=== PATIENT | male | born 1985 | race Caucasian/White ===

== ENCOUNTER 2016-11-19 15:00 | Emergency (ER) | payer SELFPAY ==
[~2016-11-19] VITALS: Ht 175.3 cm; Wt 63.5 kg
[~2016-11-19 15:00] MED LIST: ACHD5005 PO; AZIT-21 PO; CLIN-62 PO; CLIN300C3 PO; HYDR-3454 PO; HYDR-3583 PO; HYDR1TAB PO; LEVE500T PO; LEVE500T6 PO; Multivitamins/Minerals Therap PO; NAPR-243 PO; SULF1TAB38 PO; TBDX2.5OP OS; TRAM50TA2 PO; TRM50T PO
[2016-11-19] MEDS ORDERED: LACTATED RINGERS 1,000 ML IV ONE (16:00)
[2016-11-19 16:39] LABS: BASOPHILS % (AUTO) 1 % (0-10); EOSINOPHILS % (AUTO) 1 % (0-10); LYMPHOCYTES # (AUTO) 1.6 X 10^3 (1.0-4.0); LYMPHOCYTES % (AUTO) 49 % (12-44); MEAN CORPUSCULAR HEMOGLOBIN 32 PG (25-34); MEAN CORPUSCULAR HGB CONC 36 G/DL (32-36); MEAN CORPUSCULAR VOLUME 90 FL (80-99); MEAN PLATELET VOLUME 9.9 FL (7.4-10.4); MONOCYTES # (AUTO) 0.5 X 10^3 (0.0-1.0); MONOCYTES % (AUTO) 16 % (0-12); NEUTROPHILS # (AUTO) 1.1 X 10^3 (1.8-7.8); NEUTROPHILS % (AUTO) 35 % (42-75); PLATELET COUNT 69 10^3/uL (130-400); RED BLOOD COUNT 4.92 10^6/uL (4.35-5.85); RED CELL DISTRIBUTION WIDTH 14.9 % (10.0-14.5); WHITE BLOOD COUNT 3.2 10^3/uL (4.3-11.0)
[2016-11-19 16:59] LABS: ALANINE AMINOTRANSFERASE 158 U/L (0-55); ALBUMIN 4.1 G/DL (3.2-4.5); ANION GAP 13 MMOL/L (5-14); ASPARTATE AMINO TRANSFERASE 236 U/L (5-34); BILIRUBIN,TOTAL 0.4 MG/DL (0.1-1.0); BLOOD UREA NITROGEN 7 MG/DL (7-18); BUN/CREATININE RATIO 9; CALCIUM 8.6 MG/DL (8.5-10.1); CARBON DIOXIDE 25 MMOL/L (21-32); CHLORIDE 105 MMOL/L (98-107); CREATININE SERUM 0.77 MG/DL (0.60-1.30); GFR ESTIMATED > 60; GLUCOSE 71 MG/DL (70-105); LIPASE 69 U/L (8-78); POTASSIUM 3.4 MMOL/L (3.6-5.0); SODIUM 143 MMOL/L (135-145); TOTAL PROTEIN 6.4 G/DL (6.4-8.2)
[2016-11-19 17:03] LABS: ALCOHOL 390 MG/DL (<10)
--- NOTE | 2016-11-19 17:04 | Diagnostic Imaging Report ---
Indication: Chest pain. Comparison with 06/22/2014. Findings: The lungs well-aerated and clear. The heart appears normal. No hilar adenopathy. No pneumothorax or pleural effusions. No bony abnormalities. IMPRESSION: Normal PA and lateral chest. Dictated by: Dictated on workstation # [id number]
[2016-11-19 17:32] LABS: BILIRUBIN,URINE NEGATIVE (NEGATIVE); KETONES,URINE NEGATIVE (NEGATIVE); LEUKOCYTE ESTERASE ,URINE NEGATIVE (NEGATIVE); NITRITE,URINE NEGATIVE (NEGATIVE); PH,URINE 8 (5-9); PROTEIN,URINE 1+ (NEGATIVE); UROBILINOGEN,URINE 1 MG/DL (NORMAL)
[2016-11-19 17:41] LABS: WBC,URINE RARE /HPF
[2016-11-19] MEDS ORDERED: LEVE500T99 PO (18:11)
[2016-11-19] MEDS ORDERED: AZIT250T5 PO (18:11)
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
[2016-11-19] MEDS ORDERED: AZITHROMYCIN 250 MG TAB (ZITHROMAX) PO ONE (18:15)
[2016-11-19] MEDS ORDERED: LEVETIRACETAM 500 MG (KEPPRA) TAB PO ONE (18:15)
[2016-11-19 18:30] VITALS: BP 122/76
== END 2016-11-19 18:30 | disposition home or self-care (01) ==
LOC: EDUNIT# 15:00 → ER 15:06
DX: F10.229 Alcohol dependence with intoxication, unspecified (principal); J06.9 Acute upper respiratory infection, unspecified; J01.90 Acute sinusitis, unspecified; G40.909 Epilepsy, unspecified, not intractable, without status epilepticus; Z79.899 Other long term (current) drug therapy; Y90.8 Blood alcohol level of 240 mg/100 ml or more
CPT/HCPCS: 36415; 71020; 80053; 80306; 80320; 81000; 83690; 83735; 85025; 87804; 96360

== ENCOUNTER 2017-10-07 12:25 | Inpatient (IN) | payer SELFPAY ==
[~2017-10-07] VITALS: Ht 177.8 cm; Wt 72.6 kg
[2017-10-07] VITALS (10 sets, daily range): BP systolic 113–142; BP diastolic 73–101
[~2017-10-07 12:25] MED LIST changes: +AZIT250T12 PO; +LEVE500T99 PO
--- OUTSIDE RECORDS SUMMARY | 2017-10-07 14:22 | XMS REPORT ---
Author Author MEHREEN VALENCIA [facility] eClinicalWorks Address Unknown Phone Unavailable Care Team Providers Care Health Clinician Name Role Phone MEHREEN VALENCIA CP Unavailable Allergies No Known Allergies Problems Problem Type Condition ICD-9 Code Onset Dates Condition Status Problem Unspecified alopecia 704.00 Active Problem Other and unspecified noninfectious gastroenteritis and colitis 558.9 Active Problem Other convulsions 780.39 Active Problem Nondependent alcohol abuse, unspecified drunkenness 305.00 Active Problem Other specified disease of hair and hair follicles 704.8 Active Problem Personal history of methicillin resistant Staphylococcus aureus V12.04 Active Medications Medication Code System Code Instructions Start Date End Date Status Dosage Levetiracetam [facility] [address]-91 500 MG TAKE ONE TABLET BY MOUTH TWICE DAILY Results No Known Results Summary Purpose eClinicalWorks Submission
--- OUTSIDE RECORDS SUMMARY | 2017-10-07 14:22 | XMS REPORT ---
Author Author MEHREEN VALENCIA [facility] eClinicalWorks Address Unknown Phone Unavailable Care Team Providers Care Engineer Design And Construction Name Role Phone MEHREEN VALENCIA CP Unavailable [...] methicillin resistant Staphylococcus aureus V12.04 Active Medications No Known Medications Results No Known Results Summary Purpose eClinicalWorks Submission
--- OUTSIDE RECORDS SUMMARY | 2017-10-07 14:22 | XMS REPORT ---
Author Author MEHREEN VALENCIA Organization eClinical[employer] Address Unknown Phone Unavailable Care Team Providers Care Manager Quality Improvement Name Role Phone MEHREEN VALENCIA CP Unavailable Allergies No Known Allergies Problems Problem Type Condition Code Onset Dates Condition Status Problem Unspecified [...] Start Date End Date Status Dosage Levetiracetam [facility] [place] [address]-49 500 MG Orally 2 times a day 1 tablet Results No Known Results Summary Purpose eClinicalWorks Submission
--- OUTSIDE RECORDS SUMMARY | 2017-10-07 14:22 | XMS REPORT ---
Author Author MEHREEN VALENCIA [facility] eClinicalWorks Address Unknown Phone Unavailable Care Team Providers Care Hazardous Materials Analyst Name Role Phone MEHREEN VALENCIA CP Unavailable [...] Start Date End Date Status Dosage Levetiracetam [facility] [address]-31 500 MG TAKE ONE TABLET BY MOUTH TWICE DAILY Results No Known Results Summary Purpose eClinicalWorks Submission
--- OUTSIDE RECORDS SUMMARY | 2017-10-07 14:22 | XMS REPORT ---
Author Author MEHREEN VALENCIA [facility] Address [address] [place] [address] Care Team Providers Care Sawing And Assembly Supervisor Name Role Phone MEHREEN VALENCIA Unavailable PROBLEMS Type Condition ICD9-CM Code EPC82-YO Code Onset Dates Condition Status SNOMED Code Problem Other convulsions 780.39 Active 12467785 Problem Unspecified alopecia 704.00 Active 87863838 Problem Personal history of methicillin resistant Staphylococcus aureus V12.04 Active 339618839 Problem Nondependent alcohol abuse, unspecified drunkenness 305.00 Active 57252214 Problem Other and unspecified noninfectious gastroenteritis and colitis 558.9 Active 62285588 Problem Other specified disease of hair and hair follicles 704.8 Active 505794589 ALLERGIES Unknown Allergies SOCIAL HISTORY No smoking Hx information available PLAN OF CARE VITAL SIGNS MEDICATIONS Unknown Medications RESULTS No Results PROCEDURES No Known procedures IMMUNIZATIONS No Known Immunizations
--- OUTSIDE RECORDS SUMMARY | 2017-10-07 14:22 | XMS REPORT ---
Author Author KAYLENE HOLT [facility] eClinicalWorks Address Unknown Phone Unavailable Care Team Providers Care Electrical Control Assembler Name Role Phone KAYLENE HOLT CP Unavailable Allergies No Known Allergies Problems Problem Type Condition ICD-9 Code Onset Dates Condition Status Problem Unspecified alopecia 704.00 Active Problem Other and unspecified noninfectious gastroenteritis and colitis 558.9 Active Problem Other convulsions 780.39 Active Problem Nondependent alcohol abuse, unspecified drunkenness 305.00 Active Assessment Other convulsions 780.39 Active Problem Other specified disease of hair and hair follicles 704.8 Active Problem Personal history of methicillin resistant Staphylococcus aureus V12.04 Active Medications Medication Code System Code Instructions Start Date End Date Status Dosage Levetiracetam [facility] [place] [address]-55 500 MG Orally 2 times a day TAKE ONE TAB Procedures Procedure Coding System Code Date Office Visit, Est Pt., Level 4 CPT-4 85717 Jul 06, 2015 Vital Signs Date/Time: Jul 06, 2015 Temperature 98.7 F Weight 160.4 lbs Height 71 in BMI 22.37 Index Blood Pressure Diastolic 80 mmHg Blood Pressure Systolic 120 mmHg Cardiac Monitoring Heart Rate 84 bpm Results No Known Results Summary Purpose eClinicalWorks Submission
--- OUTSIDE RECORDS SUMMARY | 2017-10-07 14:22 | XMS REPORT | Continuity Of Care Document ---
Author Author [facility] Organization [facility] Address [address] [place] [address] Phone Care Team Providers Care Assembler For Puller Over Hand Name Role Phone TATE SCHMITT MD AT UNASSIGNED, ED PHYSICIAN Unavailable Unavailable NON STAFF COURTESY, PROVIDER PP Unavailable Results Results No results recorded. Allergies and Adverse Reactions Allergies and Adverse Reactions Patient Unit Number: [id number] Agent Type Reaction Severity Status PENICILLINS Drug Allergy Unknown Unknown Active Problem List Problem List Visit/Account #[id number] (October 14, 2016 11:46pm - October 15, 2016 12: 22am) Acute Problems: Code/Condition Comments Documented Start Date Documented Resolved Date Code (s) Alcohol intoxication ICD10: F10.129 Alcoholic intoxication ICD9: 305.00 Alcoholic intoxication SNOMED: 07644719 Alcoholic intoxication Alcohol abuse ICD10: F10.10 Alcohol abuse ICD9: 305.00 Alcohol abuse SNOMED: 07103013 Alcohol abuse Plan of Care Plan Of Care Visit/Account #[id number] (October 14, 2016 11:46pm - October 15, 2016 12: 22am) Patient Instructions You will be going to [facility] to detox Return for seizures or any concern Pt at risk for alcohol withdrawal please use Ativan protocol Vital Signs Vital Signs Visit/Account #[id number] (October 14, 2016 11:46pm - October 15, 2016 12: 22am) Sign First Result Last Result Code(s) Temperature in Fahrenheit Temperature (Fahrenheit): 98.2 [degF] On October 14, 2016 11:43pm Temperature (Fahrenheit): 97.7 [degF] On October 15, 2016 12:22am 8310-5 Body Temperature Weight in Kilograms Weight (Kilograms): 68.18 kg On October 14, 2016 11:43pm 3141-9 Weight Measured 54939-6 Body weight measured in kilograms Functional Status Functional and Cognitive Status No Functional Status Data Medications Inpatient/Ordered Medications - Medications administered during hospital visit Visit/Account #[id number] (October 14, 2016 11:46pm - October 15, 2016 12: 22am) Medication Route Sig/Schedule Precondition/Indication Comments/Instructions Codes ZOFRAN ODT(ONDANSETRON HCL) 4 MG TAB Dose: 4 MG ORAL NOW Label Comments: MAY INCREASE FALL RISK Ondansetron 4 MG Disintegrating Oral Tablet (RxNorm): 334467 ZOFRAN ODT (ONDANSETRON HCL) [facility] [id number] History Of Encounters Encounters Visit/Account #[id number] (October 14, 2016 11:46pm - October 15, 2016 12: 22am) Account Status Physican Of Record Reason For Visit Visit Diagnosis Start Date/Time Stop Date/Time ER TATE SCHMITT MD WITHDRAW FROM ALCOHOL Not Available Oct 14, 2016 11:46pm Oct 15, 2016 12:22am History of Procedures Procedure List No procedures recorded. Discharge Instructions Discharge Instructions Visit/Account #[id number] (October 14, 2016 11:46pm - October 15, 2016 12: 22am) DISCHARGE INSTRUCTIONS Physician Documentation Social History Social History No Social History Data. Immunizations Immunizations Patient Unit Number: [id number] Immunizations No immunizations recorded.
[2017-10-07] MEDS ORDERED: ONDANSETRON 4 MG (ZOFRAN) ORAL DISSOLVE TAB SL PRN (14:30)
[2017-10-07] MEDS ORDERED: ONDANSETRON 4 MG/2 ML (SDV) Z0FRAN IV PRN (14:30)
[2017-10-07] MEDS ORDERED: ENOXAPARIN 40 MG/0.4 ML (LOVENOX) SYR SC SCH (14:30)
[2017-10-07] MEDS ORDERED: LORazepam INJ 2 MG/ML (ATIVAN) VIAL IM/IV PRN (14:30)
[2017-10-07] MEDS ORDERED: D5 1/2 NS 1000 ML IV SOLUTION 1,000 ML IV PRN (14:30)
[2017-10-07] MEDS ORDERED: 1/2 NS IV SOLUTION 1,000 ML IV PRN (14:30)
[2017-10-07] MEDS ORDERED: ANTACID SUSP 30 ML UDC (MYLANTA) PO PRN (14:30)
[2017-10-07] MEDS ORDERED: SENNA W/DOCUSATE (SENOKOT S) TABLET PO PRN (14:30)
[2017-10-07] MEDS ORDERED: CATHETER FLUSH 10 ML SYR IV PRN (14:45)
[2017-10-07] MEDS: D5 1/2 NS W/KCL 20 MEQ/L 1,000 ML IV SCH ×2 (15:12→21:19)
[2017-10-07] MEDS ORDERED: LORazepam INJ 2 MG/ML (ATIVAN) VIAL IVP NR (16:00)
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
[2017-10-07] MEDS ORDERED: INFLUENZA TRIvalent 2017-2018 0.5 ML/45 MCG SYR IM ONE (16:45)
[2017-10-07] MEDS: PANTOPRAZOLE 40 MG (PROTONIX) TAB PO SCH (16:49)
[2017-10-07] MEDS: LORazepam INJ 2 MG/ML (ATIVAN) VIAL IV PRN ×3 (16:49→21:57)
[2017-10-07] MEDS: MAGNESIUM OXIDE (MAG-OX)400 MG TAB PO SCH (20:21)
[2017-10-07] MEDS: LEVETIRACETAM 500 MG (KEPPRA) TAB PO SCH (20:21)
[2017-10-08] VITALS (23 sets, daily range): BP systolic 122–155; BP diastolic 46–100
[2017-10-08] MEDS: LORazepam INJ 2 MG/ML (ATIVAN) VIAL IV PRN ×8 (00:40→18:50)
[2017-10-08] MEDS: D5 1/2 NS W/KCL 20 MEQ/L 1,000 ML IV SCH ×4 (04:11→19:53)
[2017-10-08 05:15] LABS: BASOPHILS % (AUTO) 0 % (0-10); EOSINOPHILS % (AUTO) 1 % (0-10); LYMPHOCYTES # (AUTO) 0.9 X 10^3 (1.0-4.0); LYMPHOCYTES % (AUTO) 25 % (12-44); MEAN CORPUSCULAR HEMOGLOBIN 34 PG (25-34); MEAN CORPUSCULAR HGB CONC 35 G/DL (32-36); MEAN CORPUSCULAR VOLUME 98 FL (80-99); MEAN PLATELET VOLUME 10.9 FL (7.4-10.4); MONOCYTES # (AUTO) 0.5 X 10^3 (0.0-1.0); MONOCYTES % (AUTO) 14 % (0-12); NEUTROPHILS # (AUTO) 2.2 X 10^3 (1.8-7.8); NEUTROPHILS % (AUTO) 61 % (42-75); PLATELET COUNT 41 10^3/uL (130-400); RED BLOOD COUNT 4.18 10^6/uL (4.35-5.85); RED CELL DISTRIBUTION WIDTH 12.6 % (10.0-14.5); WHITE BLOOD COUNT 3.7 10^3/uL (4.3-11.0)
[2017-10-08 05:39] LABS: ANION GAP 13 MMOL/L (5-14); BLOOD UREA NITROGEN 6 MG/DL (7-18); BUN/CREATININE RATIO 8; CARBON DIOXIDE 22 MMOL/L (21-32); CHLORIDE 101 MMOL/L (98-107); CREATININE SERUM 0.76 MG/DL (0.60-1.30); GFR ESTIMATED > 60; GLUCOSE 101 MG/DL (70-105); MAGNESIUM 1.8 MG/DL (1.8-2.4); PHOSPHORUS 2.4 MG/DL (2.3-4.7); POTASSIUM 3.9 MMOL/L (3.6-5.0); SODIUM 136 MMOL/L (135-145)
[2017-10-08] MEDS: POTASSIUM CL 10MEQ/50ML IVPB 50 ML IV SCH (05:59)
[2017-10-08] MEDS: KCL 20 MEQ TAB (K-DUR) PO SCH (06:00)
[2017-10-08] MEDS: MULTIVIT W/MINERALS TAB (THERAGRAN M) PO SCH (06:25)
[2017-10-08] MEDS: PANTOPRAZOLE 40 MG (PROTONIX) TAB PO SCH (06:25)
[2017-10-08] MEDS: THIAMINE 100 MG (VITAMIN B-1) TAB PO SCH (06:26)
[2017-10-08] MEDS: MAGNESIUM 1 GM/100 ML IVPB 100 ML IV SCH (06:40)
[2017-10-08] MEDS: MAGNESIUM OXIDE (MAG-OX)400 MG TAB PO SCH ×2 (08:19→20:50)
[2017-10-08] MEDS: FOLIC ACID 1 MG TAB PO SCH (08:19)
[2017-10-08] MEDS: LEVETIRACETAM 500 MG (KEPPRA) TAB PO SCH (08:19)
[2017-10-08] MEDS ORDERED: LEVE500T6 PO (09:45)
--- NOTE | 2017-10-08 11:16 | Progress Note (SOAP) ---
Subjective Subjective/Events-last exam Afebrile. Had altered mental status overnight, urinated in trash can and on floor. This morning he denies complaints except tremor. Review of Systems Date Seen by Provider: Oct 08, 2017 Time Seen by Provider: 10:20 Objective Exam Last Set of Vital Signs Vital Signs Date Time Temp Pulse Resp B/P (MAP) Pulse Ox O2 Delivery O2 Flow Rate FiO2 10/08/17 09:00 78 17 134/93 (107) 97 Room Air 10/08/17 08:21 98.9 10/08/17 03:39 2.00 Capillary Refill : I&O Intake and Output 10/08/17 00:00 Intake Total 1720 ml Output Total 750 ml Balance 970 ml Intake Oral 720 ml IV Total 1000 ml Output Urine Total 750 ml Daily Weight Change No General: Alert, Oriented X3, Mild Distress Lungs: Clear to Auscultation, Normal Air Movement Heart: Regular Rate, No Murmurs Neuro: Other (tremor) Psych/Mental Status: Mental Status NL Results/Procedures Lab Laboratory Tests 10/08/17 04:50: White Blood Count 3.7L, Red Blood Count 4.18L, Hemoglobin 14.3, Hematocrit 41, Mean Corpuscular Volume 98, Mean Corpuscular Hemoglobin 34, Mean Corpuscular Hemoglobin Concent 35, Red Cell Distribution Width 12.6, Platelet Count 41L, Mean Platelet Volume 10.9H, Neutrophils (%) (Auto) 61, Lymphocytes (%) (Auto) 25 , Monocytes (%) (Auto) 14H, Eosinophils (%) (Auto) 1, Basophils (%) (Auto) 0, Neutrophils # (Auto) 2.2, Lymphocytes # (Auto) 0.9L, Monocytes # (Auto) 0.5, Eosinophils # (Auto) 0.0, Basophils # (Auto) 0.0, Sodium Level 136, Potassium Level 3.9, Chloride Level 101, Carbon Dioxide Level 22, Anion Gap 13, Blood Urea Nitrogen 6L, Creatinine 0.76, Estimat Glomerular Filtration Rate > 60, BUN/ Creatinine Ratio 8, Glucose Level 101, Calcium Level 9.0, Phosphorus Level 2.4, Magnesium Level 1.8 10/08/17 08:59: Assessment/Plan Assessment/Plan (1) Alcohol withdrawal Status: Acute Assessment & Plan: Alcohol withdrawal protocol- IVF, MVI, thiamine, folate, magnesium and ativan per CIWA scoring 10/08 required 6 mg ativan overnight, CIWA scores 7-12, will transfer to floor and continue protocol (2) Seizure disorder Status: Chronic Assessment & Plan: Resume home Keppra (3) Hypokalemia Status: Resolved Assessment & Plan: Received 20 mEq orally at OSH, recheck in the am (4) Elevated LFTs Status: Acute Assessment & Plan: Likely due to alcohol, check hepatitis panel (5) Hypomagnesemia Status: Acute (6) Thrombocytopenia Status: Acute Assessment & Plan: Suspect due to liver disease, INR/PT and PTT low at OSH. Recheck in am. 10/08 stable but low, continue to monitor (7) At risk for deep venous thrombosis Status: Acute Assessment & Plan: No enoxaparin due to low platelets, SCDs, ambulation (8) At risk for stress ulcer Status: Acute Assessment & Plan: No H2 james due to thrombocytopenia, will use PPI Clinical Quality Measures DVT/VTE Risk/Contraindication: Risk Factor Score Per Nursin RFS Level Per Nursing on Admit: 1=Low/No VTE PPX CHARU ADAMES MD Oct 08, 2017 11:16 am
[2017-10-08] MEDS ORDERED: LORazepam INJ 2 MG/ML (ATIVAN) VIAL IV NR (13:01)
[2017-10-08] MEDS ORDERED: LORazepam INJ 2 MG/ML (ATIVAN) VIAL IVP NR (14:30)
[2017-10-08] MEDS: NICOTINE 21 MG (NICODERM) PATCH TD SCH (16:47)
[2017-10-08] MEDS: LORazepam INJ 2 MG/ML (ATIVAN) VIAL IVP NR ×2 (17:12→19:20)
[2017-10-08] MEDS ORDERED: NS (IVPB) 50 ML ONE (17:52)
[2017-10-08] MEDS: DEXMEDETOMIDINE INJECTION 400 MCG in NS (IVPB) 100 ML IV SCH ×2 (17:57→20:52)
[2017-10-08] MEDS ORDERED: HALOPERIDOL 5 MG/ML (HALDOL) AMP IV NR (19:00)
[2017-10-08] MEDS ORDERED: LORazepam INJ 2 MG/ML (ATIVAN) VIAL IV PRN (19:45)
[2017-10-08] MEDS ORDERED: HALOPERIDOL 5 MG/ML (HALDOL) AMP IV PRN (19:45)
[2017-10-08] MEDS: LEVETIRACETAM INJECTION 500 MG in NS (IVPB) 50 ML IV SCH (20:50)
[2017-10-09] VITALS (24 sets, daily range): BP systolic 118–146; BP diastolic 88–109
[2017-10-09] MEDS: DEXMEDETOMIDINE INJECTION 400 MCG in NS (IVPB) 100 ML IV SCH ×2 (05:14→16:44)
[2017-10-09 05:18] LABS: BASOPHILS % (AUTO) 0 % (0-10); EOSINOPHILS % (AUTO) 1 % (0-10); LYMPHOCYTES # (AUTO) 0.7 X 10^3 (1.0-4.0); LYMPHOCYTES % (AUTO) 17 % (12-44); MEAN CORPUSCULAR HEMOGLOBIN 35 PG (25-34); MEAN CORPUSCULAR HGB CONC 36 G/DL (32-36); MEAN CORPUSCULAR VOLUME 98 FL (80-99); MONOCYTES # (AUTO) 0.5 X 10^3 (0.0-1.0); MONOCYTES % (AUTO) 12 % (0-12); NEUTROPHILS # (AUTO) 3.1 X 10^3 (1.8-7.8); NEUTROPHILS % (AUTO) 71 % (42-75); PLATELET COUNT 45 10^3/uL (130-400); RED BLOOD COUNT 4.48 10^6/uL (4.35-5.85); RED CELL DISTRIBUTION WIDTH 12.5 % (10.0-14.5); WHITE BLOOD COUNT 4.4 10^3/uL (4.3-11.0)
[2017-10-09] MEDS: MULTIVIT W/MINERALS TAB (THERAGRAN M) PO SCH (05:40)
[2017-10-09] MEDS: THIAMINE 100 MG (VITAMIN B-1) TAB PO SCH (05:40)
[2017-10-09] MEDS: PANTOPRAZOLE 40 MG (PROTONIX) TAB PO SCH (05:40)
[2017-10-09 05:48] LABS: ANION GAP 11 MMOL/L (5-14); BLOOD UREA NITROGEN 5 MG/DL (7-18); BUN/CREATININE RATIO 7; CALCIUM 9.8 MG/DL (8.5-10.1); CARBON DIOXIDE 22 MMOL/L (21-32); CHLORIDE 107 MMOL/L (98-107); CREATININE SERUM 0.68 MG/DL (0.60-1.30); GFR ESTIMATED > 60; GLUCOSE 101 MG/DL (70-105); MAGNESIUM 2.1 MG/DL (1.8-2.4); PHOSPHORUS 3.3 MG/DL (2.3-4.7); POTASSIUM 4.2 MMOL/L (3.6-5.0); SODIUM 140 MMOL/L (135-145)
[2017-10-09] MEDS: POTASSIUM CL 10MEQ/50ML IVPB 50 ML IV SCH (06:03)
[2017-10-09] MEDS: MAGNESIUM 1 GM/100 ML IVPB 100 ML IV SCH (06:03)
[2017-10-09] MEDS: KCL 20 MEQ TAB (K-DUR) PO SCH (06:03)
[2017-10-09] MEDS: D5 1/2 NS W/KCL 20 MEQ/L 1,000 ML IV SCH ×3 (06:13→19:18)
[2017-10-09] MEDS: LORazepam INJ 2 MG/ML (ATIVAN) VIAL IV PRN ×5 (06:53→23:32)
[2017-10-09 08:27] LABS: HIV AG AB SCREEN Non-Reactive (Non-Reactive)
[2017-10-09] MEDS: NICOTINE PATCH REMOVAL TP SCH (09:03)
[2017-10-09] MEDS: NICOTINE 21 MG (NICODERM) PATCH TD SCH (09:03)
[2017-10-09] MEDS: LEVETIRACETAM INJECTION 500 MG in NS (IVPB) 50 ML IV SCH ×2 (09:04→20:54)
[2017-10-09 09:09] LABS: ALBUMIN 3.9 GM/DL (3.2-4.5); BILIRUBIN,DIRECT 0.3 MG/DL (0.0-0.3); BILIRUBIN,INDIRECT 0.3 MG/DL; BILIRUBIN,TOTAL 0.6 MG/DL (0.1-1.0); TOTAL PROTEIN 7.2 GM/DL (6.4-8.2)
[2017-10-09] MEDS: MAGNESIUM OXIDE (MAG-OX)400 MG TAB PO SCH ×2 (10:09→20:47)
[2017-10-09] MEDS: FOLIC ACID 1 MG TAB PO SCH (10:09)
--- NOTE | 2017-10-09 10:40 | Progress Note (SOAP) ---
Subjective Subjective/Events-last exam Significant worsening of agitation and hallucinations last night requiring rapidly escalating doses of lorazepam and ultimately Precedex drip and haldol to calm. This morning is sedated on Precdex drip, but opens eyes to name and stimulation. Review of Systems Date Seen by Provider: Oct 09, 2017 Time Seen by Provider: 09:45 Objective Exam Last Set of Vital Signs Vital Signs Date Time Temp Pulse Resp B/P (MAP) Pulse Ox O2 Delivery O2 Flow Rate FiO2 10/09/17 10:00 57 13 138/101 (113) 94 Nasal Cannula 3.50 10/09/17 08:00 98.1 Capillary Refill : I&O Intake and Output 10/09/17 00:00 Intake Total 4559 ml Output Total 3125 ml Balance 1434 ml Intake Oral 1400 ml IV Total 3159 ml Output Urine Total 3125 ml # Voids 6 General: Other (sleeping soundly, opens eyes briefly to name) Lungs: Clear to Auscultation, Normal Air Movement Heart: No Murmurs, Other (bradycardic) Abdomen: Normal Bowel Sounds, Soft Extremities: No Edema Results/Procedures Lab Laboratory Tests 10/09/17 05:05: White Blood Count 4.4, Red Blood Count 4.48, Hemoglobin 15.5, Hematocrit 44, Mean Corpuscular Volume 98, Mean Corpuscular Hemoglobin 35H, Mean Corpuscular Hemoglobin Concent 36, Red Cell Distribution Width 12.5, Platelet Count 45L, Mean Platelet Volume 11.0H, Neutrophils (%) (Auto) 71, Lymphocytes (%) (Auto) 17 , Monocytes (%) (Auto) 12, Eosinophils (%) (Auto) 1, Basophils (%) (Auto) 0, Neutrophils # (Auto) 3.1, Lymphocytes # (Auto) 0.7L, Monocytes # (Auto) 0.5, Eosinophils # (Auto) 0.0, Basophils # (Auto) 0.0, Sodium Level 140, Potassium Level 4.2, Chloride Level 107, Carbon Dioxide Level 22, Anion Gap 11, Blood Urea Nitrogen 5L, Creatinine 0.68, Estimat Glomerular Filtration Rate > 60, BUN/ Creatinine Ratio 7, Glucose Level 101, Calcium Level 9.8, Phosphorus Level 3.3, Magnesium Level 2.1, Total Bilirubin 0.6, Direct Bilirubin 0.3, Indirect Bilirubin 0.3, Aspartate Amino Transf (AST/SGOT) 97H, Alanine Aminotransferase ( ALT/SGPT) 57H, Alkaline Phosphatase 107, Total Protein 7.2, Albumin 3.9 Assessment/Plan Assessment/Plan (1) Alcohol withdrawal Status: Acute Assessment & Plan: Alcohol withdrawal protocol- IVF, MVI, thiamine, folate, magnesium and ativan per CIWA scoring 10/08 required 6 mg ativan overnight, CIWA scores 7-12, will transfer to floor and continue protocol 10/09- significant worsening later in day yesterday requiring extra doses of lorazepam and ultimately Precedex drip. Sedated this am, will try decreasing precdex drip to 0.5 mcg/kg. Qualifiers: Qualified Codes: F10.232 - Alcohol dependence with withdrawal with perceptual disturbance (2) Seizure disorder Status: Chronic Assessment & Plan: Resume home Keppra- changed to IV due to clinical status (3) Hypokalemia Status: Resolved (4) Elevated LFTs Status: Acute Assessment & Plan: Likely due to alcohol, check hepatitis panel Hepatitis panel negative, enzymes stable/decreasing, monitor (5) Hypomagnesemia Status: Resolved (6) Thrombocytopenia Status: Acute Assessment & Plan: Suspect due to liver disease, INR/PT and PTT low at OSH. Recheck in am. 10/08 stable but low, continue to monitor (7) At risk for deep venous thrombosis Status: Acute Assessment & Plan: No enoxaparin due to low platelets, SCDs, ambulation (8) At risk for stress ulcer Status: Acute Assessment & Plan: No H2 james due to thrombocytopenia, will use PPI Clinical Quality Measures DVT/VTE Risk/Contraindication: Risk Factor Score Per Nursin RFS Level Per Nursing on Admit: 1=Low/No VTE PPX CHARU ADAMES MD Oct 09, 2017 10:40 am
[2017-10-09] MEDS: PANTOPRAZOLE 40 MG/10 ML (PROTONIX) VIAL IV SCH (11:43)
[2017-10-10] VITALS (13 sets, daily range): BP systolic 108–137; BP diastolic 73–95
[2017-10-10] MEDS: D5 1/2 NS W/KCL 20 MEQ/L 1,000 ML IV SCH ×4 (01:58→22:28)
[2017-10-10] MEDS: LORazepam INJ 2 MG/ML (ATIVAN) VIAL IV PRN ×2 (04:17→05:30)
[2017-10-10 05:25] LABS: BASOPHILS % (AUTO) 0 % (0-10); EOSINOPHILS # (AUTO) 0.1 10^3/uL (0.0-0.3); EOSINOPHILS % (AUTO) 1 % (0-10); LYMPHOCYTES # (AUTO) 1.1 X 10^3 (1.0-4.0); LYMPHOCYTES % (AUTO) 19 % (12-44); MEAN CORPUSCULAR HEMOGLOBIN 35 PG (25-34); MEAN CORPUSCULAR HGB CONC 36 G/DL (32-36); MEAN CORPUSCULAR VOLUME 97 FL (80-99); MONOCYTES # (AUTO) 0.8 X 10^3 (0.0-1.0); MONOCYTES % (AUTO) 13 % (0-12); NEUTROPHILS # (AUTO) 3.9 X 10^3 (1.8-7.8); NEUTROPHILS % (AUTO) 66 % (42-75); PLATELET COUNT 56 10^3/uL (130-400); RED BLOOD COUNT 4.42 10^6/uL (4.35-5.85); RED CELL DISTRIBUTION WIDTH 12.4 % (10.0-14.5)
[2017-10-10 05:51] LABS: ALANINE AMINOTRANSFERASE 56 U/L (0-55); ALBUMIN 3.7 GM/DL (3.2-4.5); ANION GAP 10 MMOL/L (5-14); ASPARTATE AMINO TRANSFERASE 80 U/L (5-34); BILIRUBIN,TOTAL 0.6 MG/DL (0.1-1.0); BLOOD UREA NITROGEN 4 MG/DL (7-18); BUN/CREATININE RATIO 5; CARBON DIOXIDE 23 MMOL/L (21-32); CHLORIDE 102 MMOL/L (98-107); CREATININE SERUM 0.74 MG/DL (0.60-1.30); GFR ESTIMATED > 60; GLUCOSE 111 MG/DL (70-105); POTASSIUM 4.2 MMOL/L (3.6-5.0); SODIUM 135 MMOL/L (135-145); TOTAL PROTEIN 6.2 GM/DL (6.4-8.2)
[2017-10-10] MEDS: POTASSIUM CL 10MEQ/50ML IVPB 50 ML IV SCH (06:07)
[2017-10-10] MEDS: MAGNESIUM 1 GM/100 ML IVPB 100 ML IV SCH (06:07)
[2017-10-10] MEDS: KCL 20 MEQ TAB (K-DUR) PO SCH (06:07)
[2017-10-10] MEDS: NICOTINE PATCH REMOVAL TP SCH (07:00)
[2017-10-10] MEDS: MULTIVIT W/MINERALS TAB (THERAGRAN M) PO SCH (07:03)
[2017-10-10] MEDS: THIAMINE 100 MG (VITAMIN B-1) TAB PO SCH (07:03)
[2017-10-10] MEDS: NICOTINE 21 MG (NICODERM) PATCH TD SCH ×2 (09:15→13:05)
[2017-10-10] MEDS: LEVETIRACETAM INJECTION 500 MG in NS (IVPB) 50 ML IV SCH (09:15)
[2017-10-10] MEDS: PANTOPRAZOLE 40 MG/10 ML (PROTONIX) VIAL IV SCH (09:16)
[2017-10-10] MEDS: FOLIC ACID 1 MG TAB PO SCH (09:16)
[2017-10-10] MEDS: MAGNESIUM OXIDE (MAG-OX)400 MG TAB PO SCH (09:16)
--- NOTE | 2017-10-10 10:19 | Progress Note (SOAP) ---
Subjective Subjective/Events-last exam Afebrile, no acute events. Weaned off Precedex drip a couple of hours ago and doing well. Review of Systems Date Seen by Provider: Oct 10, 2017 Time Seen by Provider: 09:50 Objective Exam Last Set of Vital Signs Vital Signs Date Time Temp Pulse Resp B/P (MAP) Pulse Ox O2 Delivery O2 Flow Rate FiO2 10/10/17 08:00 Room Air 10/10/17 07:00 122 10/10/17 06:00 136/75 (95) 97 10/10/17 04:00 99.2 10/09/17 19:00 15 10/09/17 16:00 3.50 Capillary Refill : Less Than 3 Seconds I&O Intake and Output 10/09/17 23:59 Intake Total 3208 ml Output Total 1450 ml Balance 1758 ml Intake Oral 0 ml IV Total 3208 ml Output Urine Total 1450 ml # Voids 2 General: Alert, No Acute Distress Lungs: Clear to Auscultation, Normal Air Movement Heart: No Murmurs, Other (tachycardic) Neuro: Normal Speech Psych/Mental Status: Mental Status NL Results/Procedures Lab Laboratory Tests 10/10/17 05:10: White Blood Count 6.0, Red Blood Count 4.42, Hemoglobin 15.4, Hematocrit 43, Mean Corpuscular Volume 97, Mean Corpuscular Hemoglobin 35H, Mean Corpuscular Hemoglobin Concent 36, Red Cell Distribution Width 12.4, Platelet Count 56L, Mean Platelet Volume 12.0H, Neutrophils (%) (Auto) 66, Lymphocytes (%) (Auto) 19 , Monocytes (%) (Auto) 13H, Eosinophils (%) (Auto) 1, Basophils (%) (Auto) 0, Neutrophils # (Auto) 3.9, Lymphocytes # (Auto) 1.1, Monocytes # (Auto) 0.8, Eosinophils # (Auto) 0.1, Basophils # (Auto) 0.0, Sodium Level 135, Potassium Level 4.2, Chloride Level 102, Carbon Dioxide Level 23, Anion Gap 10, Blood Urea Nitrogen 4L, Creatinine 0.74, Estimat Glomerular Filtration Rate > 60, BUN/ Creatinine Ratio 5, Glucose Level 111H, Calcium Level 9.0, Total Bilirubin 0.6, Aspartate Amino Transf (AST/SGOT) 80H, Alanine Aminotransferase (ALT/SGPT) 56H, Alkaline Phosphatase 119, Total Protein 6.2L, Albumin 3.7 Assessment/Plan Assessment/Plan (1) Alcohol withdrawal Status: Acute Assessment & Plan: Alcohol withdrawal protocol- IVF, MVI, thiamine, folate, magnesium and ativan per CIWA scoring 10/08 required 6 mg ativan overnight, CIWA scores 7-12, will transfer to floor and continue protocol 10/09- significant worsening later in day yesterday requiring extra doses of lorazepam and ultimately Precedex drip. Sedated this am, will try decreasing precdex drip to 0.5 mcg/kg 10/10- weaned off Precedex drip, transfer to floor and continue ativan withdrawal protocol. Has ATC placement Saturday after evaluation in the morning, anticipate taper will be done by then. Qualifiers: Qualified Codes: F10.232 - Alcohol dependence with withdrawal with perceptual disturbance (2) Seizure disorder Status: Chronic Assessment & Plan: Resume home Keppra- changed to IV due to clinical status (3) Hypokalemia Status: Resolved (4) Elevated LFTs Status: Acute Assessment & Plan: Likely due to alcohol, check hepatitis panel Hepatitis panel negative, enzymes stable/decreasing, monitor (5) Hypomagnesemia Status: Resolved (6) Thrombocytopenia Status: Acute Assessment & Plan: Suspect due to liver disease, INR/PT and PTT low at OSH. Recheck in am. 10/08 stable but low, continue to monitor (7) At risk for deep venous thrombosis Status: Acute Assessment & Plan: No enoxaparin due to low platelets, SCDs, ambulation (8) At risk for stress ulcer Status: Acute Assessment & Plan: No H2 james due to thrombocytopenia, will use PPI Clinical Quality Measures DVT/VTE Risk/Contraindication: Risk Factor Score Per Nursin RFS Level Per Nursing on Admit: 1=Low/No VTE PPX CHARU ADAMES MD Oct 10, 2017 10:19 am
[2017-10-10] MEDS: LORazepam 1 MG (ATIVAN) TAB PO PRN ×10 (10:22→23:26)
[2017-10-10] MEDS: LEVETIRACETAM 500 MG (KEPPRA) TAB PO SCH (20:23)
[2017-10-10] MEDS ORDERED: LEVETIRACETAM 500 MG (KEPPRA) TAB PO SCH (21:00)
[2017-10-11] MEDS: LORazepam 1 MG (ATIVAN) TAB PO PRN ×11 (00:29→23:02)
[2017-10-11 04:05] VITALS: BP 130/85
[2017-10-11] MEDS: D5 1/2 NS W/KCL 20 MEQ/L 1,000 ML IV SCH (05:19)
[2017-10-11 05:42] LABS: BASOPHILS % (AUTO) 0 % (0-10); EOSINOPHILS % (AUTO) 1 % (0-10); LYMPHOCYTES # (AUTO) 0.9 X 10^3 (1.0-4.0); LYMPHOCYTES % (AUTO) 27 % (12-44); MEAN CORPUSCULAR HEMOGLOBIN 35 PG (25-34); MEAN CORPUSCULAR HGB CONC 35 G/DL (32-36); MEAN CORPUSCULAR VOLUME 99 FL (80-99); MEAN PLATELET VOLUME 10.9 FL (7.4-10.4); MONOCYTES # (AUTO) 0.9 X 10^3 (0.0-1.0); MONOCYTES % (AUTO) 25 % (0-12); NEUTROPHILS # (AUTO) 1.7 X 10^3 (1.8-7.8); NEUTROPHILS % (AUTO) 48 % (42-75); PLATELET COUNT 102 10^3/uL (130-400); RED CELL DISTRIBUTION WIDTH 12.7 % (10.0-14.5); WHITE BLOOD COUNT 3.5 10^3/uL (4.3-11.0)
[2017-10-11 06:11] LABS: ALANINE AMINOTRANSFERASE 80 U/L (0-55); ALBUMIN 4.1 GM/DL (3.2-4.5); ANION GAP 11 MMOL/L (5-14); ASPARTATE AMINO TRANSFERASE 117 U/L (5-34); BILIRUBIN,TOTAL 0.4 MG/DL (0.1-1.0); BLOOD UREA NITROGEN 4 MG/DL (7-18); BUN/CREATININE RATIO 5; CARBON DIOXIDE 24 MMOL/L (21-32); CHLORIDE 105 MMOL/L (98-107); CREATININE SERUM 0.73 MG/DL (0.60-1.30); GFR ESTIMATED > 60; GLUCOSE 85 MG/DL (70-105); POTASSIUM 4.1 MMOL/L (3.6-5.0); SODIUM 140 MMOL/L (135-145); TOTAL PROTEIN 7.7 GM/DL (6.4-8.2)
[2017-10-11] MEDS: THIAMINE 100 MG (VITAMIN B-1) TAB PO SCH (06:44)
[2017-10-11] MEDS: PANTOPRAZOLE 40 MG (PROTONIX) TAB PO SCH (06:44)
[2017-10-11] MEDS: MULTIVIT W/MINERALS TAB (THERAGRAN M) PO SCH (06:44)
[2017-10-11 08:00] VITALS: BP 132/96
[2017-10-11] MEDS: NICOTINE PATCH REMOVAL TP SCH (09:43)
[2017-10-11] MEDS: LEVETIRACETAM 500 MG (KEPPRA) TAB PO SCH ×2 (09:43→20:14)
[2017-10-11] MEDS: NICOTINE 21 MG (NICODERM) PATCH TD SCH (09:43)
[2017-10-11] MEDS: FOLIC ACID 1 MG TAB PO SCH (09:43)
--- NOTE | 2017-10-11 10:49 | Progress Note (SOAP) ---
Subjective Subjective/Events-last exam Required 19 mg of PO lorazepam last 24 hours and is visibly tremulous, but reports he is feeling better. Review of Systems Date Seen by Provider: Oct 11, 2017 Time Seen by Provider: 10:25 Objective Exam Last Set of Vital Signs Vital Signs Date Time Temp Pulse Resp B/P (MAP) Pulse Ox O2 Delivery O2 Flow Rate FiO2 10/11/17 08:00 99.1 88 20 132/96 (108) 99 Room Air 10/09/17 16:00 3.50 Capillary Refill : Less Than 3 SecondsLess Than 3 Seconds I&O Intake and Output 10/11/17 00:00 Intake Total 4787 ml Output Total 3195 ml Balance 1592 ml Intake Oral 1797 ml IV Total 2990 ml Output Urine Total 3195 ml # Voids 2 # Bowel Movements 1 General: Alert, Mild Distress Heart: No Murmurs, Other (tachycardic) Neuro: Normal Speech, Other (tremulous) Psych/Mental Status: Other (anxious) Results/Procedures Lab Laboratory Tests 10/11/17 05:25: White Blood Count 3.5L, Red Blood Count 4.40, Hemoglobin 15.2, Hematocrit 44, Mean Corpuscular Volume 99, Mean Corpuscular Hemoglobin 35H, Mean Corpuscular Hemoglobin Concent 35, Red Cell Distribution Width 12.7, Platelet Count 102L, Mean Platelet Volume 10.9H, Neutrophils (%) (Auto) 48, Lymphocytes (%) (Auto) 27 , Monocytes (%) (Auto) 25H, Eosinophils (%) (Auto) 1, Basophils (%) (Auto) 0, Neutrophils # (Auto) 1.7L, Lymphocytes # (Auto) 0.9L, Monocytes # (Auto) 0.9, Eosinophils # (Auto) 0.0, Basophils # (Auto) 0.0, Sodium Level 140, Potassium Level 4.1, Chloride Level 105, Carbon Dioxide Level 24, Anion Gap 11, Blood Urea Nitrogen 4L, Creatinine 0.73, Estimat Glomerular Filtration Rate > 60, BUN/ Creatinine Ratio 5, Glucose Level 85, Calcium Level 10.0, Total Bilirubin 0.4, Aspartate Amino Transf (AST/SGOT) 117H, Alanine Aminotransferase (ALT/SGPT) 80H , Alkaline Phosphatase 118, Total Protein 7.7, Albumin 4.1 Assessment/Plan Assessment/Plan (1) Alcohol withdrawal Status: Acute Assessment & Plan: Alcohol withdrawal protocol- IVF, MVI, thiamine, folate, magnesium and ativan per CIWA scoring 10/08 required 6 mg ativan overnight, CIWA scores 7-12, will transfer to floor and continue protocol 10/09- significant worsening later in day yesterday requiring extra doses of lorazepam and ultimately Precedex drip. Sedated this am, will try decreasing precdex drip to 0.5 mcg/kg 10/10- weaned off Precedex drip, transfer to floor and continue ativan withdrawal protocol. Has ATC placement Saturday after evaluation in the morning, anticipate taper will be done by then. 10/11- required significant doses of lorazepam and remains tremulous and tachycardic, discussed with social work and he will be able to have his screen done on Saturday even if not yet ready for d/c. Qualifiers: Qualified Codes: F10.232 - Alcohol dependence with withdrawal with perceptual disturbance (2) Seizure disorder Status: Chronic Assessment & Plan: Resume home Keppra (3) Hypokalemia Status: Resolved (4) Elevated LFTs Status: Acute Assessment & Plan: Likely due to alcohol, check hepatitis panel Hepatitis panel negative, monitor (5) Hypomagnesemia Status: Resolved (6) Thrombocytopenia Status: Acute Assessment & Plan: Suspect due to liver disease, INR/PT and PTT low at OSH. Recheck in am. 10/08 stable but low, continue to monitor 10/11- improving, now above 100, continue to monitor (7) At risk for deep venous thrombosis Status: Acute Assessment & Plan: No enoxaparin due to low platelets, SCDs, ambulation (8) At risk for stress ulcer Status: Acute Clinical Quality Measures DVT/VTE Risk/Contraindication: Risk Factor Score Per Nursin RFS Level Per Nursing on Admit: 1=Low/No VTE PPX CHARU ADAMES MD Oct 11, 2017 10:49 am
[2017-10-11 12:00] VITALS: BP 133/93
[2017-10-11 15:22] VITALS: BP 132/93
[2017-10-11 19:29] VITALS: BP 112/73
[2017-10-12] VITALS: BP 144/94
[2017-10-12] MEDS: LORazepam 1 MG (ATIVAN) TAB PO PRN ×3 (00:15→06:41)
[2017-10-12 04:00] VITALS: BP 131/85
[2017-10-12 05:01] LABS: BASOPHILS % (AUTO) 0 % (0-10); EOSINOPHILS % (AUTO) 1 % (0-10); LYMPHOCYTES # (AUTO) 1.1 X 10^3 (1.0-4.0); LYMPHOCYTES % (AUTO) 28 % (12-44); MEAN CORPUSCULAR HEMOGLOBIN 35 PG (25-34); MEAN CORPUSCULAR HGB CONC 35 G/DL (32-36); MEAN CORPUSCULAR VOLUME 100 FL (80-99); MEAN PLATELET VOLUME 10.9 FL (7.4-10.4); MONOCYTES % (AUTO) 24 % (0-12); NEUTROPHILS # (AUTO) 1.9 X 10^3 (1.8-7.8); NEUTROPHILS % (AUTO) 47 % (42-75); PLATELET COUNT 134 10^3/uL (130-400); RED BLOOD COUNT 4.28 10^6/uL (4.35-5.85); RED CELL DISTRIBUTION WIDTH 12.9 % (10.0-14.5); WHITE BLOOD COUNT 4.1 10^3/uL (4.3-11.0)
[2017-10-12 05:19] LABS: ALANINE AMINOTRANSFERASE 93 U/L (0-55); ALBUMIN 3.9 GM/DL (3.2-4.5); ANION GAP 10 MMOL/L (5-14); ASPARTATE AMINO TRANSFERASE 109 U/L (5-34); BILIRUBIN,TOTAL 0.4 MG/DL (0.1-1.0); BLOOD UREA NITROGEN 7 MG/DL (7-18); BUN/CREATININE RATIO 9; CALCIUM 9.6 MG/DL (8.5-10.1); CARBON DIOXIDE 24 MMOL/L (21-32); CHLORIDE 106 MMOL/L (98-107); CREATININE SERUM 0.77 MG/DL (0.60-1.30); GFR ESTIMATED > 60; GLUCOSE 91 MG/DL (70-105); POTASSIUM 4.3 MMOL/L (3.6-5.0); SODIUM 140 MMOL/L (135-145); TOTAL PROTEIN 7.3 GM/DL (6.4-8.2)
[2017-10-12] MEDS: MULTIVIT W/MINERALS TAB (THERAGRAN M) PO SCH (06:41)
[2017-10-12] MEDS: PANTOPRAZOLE 40 MG (PROTONIX) TAB PO SCH (06:41)
[2017-10-12] MEDS: THIAMINE 100 MG (VITAMIN B-1) TAB PO SCH (06:41)
[2017-10-12 08:00] VITALS: BP 140/93
[2017-10-12] MEDS: NICOTINE PATCH REMOVAL TP SCH (08:13)
[2017-10-12] MEDS: NICOTINE 21 MG (NICODERM) PATCH TD SCH (08:13)
[2017-10-12] MEDS: FOLIC ACID 1 MG TAB PO SCH (08:13)
[2017-10-12] MEDS: LEVETIRACETAM 500 MG (KEPPRA) TAB PO SCH ×2 (08:13→20:33)
--- NOTE | 2017-10-12 08:43 | Progress Note (SOAP) ---
Subjective Subjective/Events-last exam Patient reports to me today that he is much better from when he first came in regarding the shakes. He understands that he needs to be here until at least Saturday when he will be screened for alcohol treatment. He is currently on a when necessary protocol regarding Ativan use for alcohol detoxification. Review of Systems Date Seen by Provider: Oct 12, 2017 Time Seen by Provider: 07:40 Objective Exam Last Set of Vital Signs Vital Signs Date Time Temp Pulse Resp B/P (MAP) Pulse Ox O2 Delivery O2 Flow Rate FiO2 10/12/17 04:00 98.8 68 20 131/85 (100) 100 Room Air 10/09/17 16:00 3.50 Capillary Refill : Less Than 3 SecondsLess Than 3 Seconds I&O Intake and Output 10/12/17 00:00 Intake Total 3080 ml Output Total 2975 ml Balance 105 ml Intake Oral 2080 ml IV Total 1000 ml Output Urine Total 2975 ml # Bowel Movements 1 General: No Acute Distress (But he is somewhat) Neck: Supple Lungs: Clear to Auscultation Heart: Regular Rate Abdomen: Soft Results/Procedures Lab Laboratory Tests 10/12/17 04:03: White Blood Count 4.1L, Red Blood Count 4.28L, Hemoglobin 14.8, Hematocrit 43, Mean Corpuscular Volume 100H, Mean Corpuscular Hemoglobin 35H, Mean Corpuscular Hemoglobin Concent 35, Red Cell Distribution Width 12.9, Platelet Count 134, Mean Platelet Volume 10.9H, Neutrophils (%) (Auto) 47, Lymphocytes (%) (Auto) 28 , Monocytes (%) (Auto) 24H, Eosinophils (%) (Auto) 1, Basophils (%) (Auto) 0, Neutrophils # (Auto) 1.9, Lymphocytes # (Auto) 1.1, Monocytes # (Auto) 1.0, Eosinophils # (Auto) 0.0, Basophils # (Auto) 0.0, Sodium Level 140, Potassium Level 4.3, Chloride Level 106, Carbon Dioxide Level 24, Anion Gap 10, Blood Urea Nitrogen 7, Creatinine 0.77, Estimat Glomerular Filtration Rate > 60, BUN/ Creatinine Ratio 9, Glucose Level 91, Calcium Level 9.6, Total Bilirubin 0.4, Aspartate Amino Transf (AST/SGOT) 109H, Alanine Aminotransferase (ALT/SGPT) 93H , Alkaline Phosphatase 112, Total Protein 7.3, Albumin 3.9 Assessment/Plan Assessment/Plan Admission Dx (1) Alcohol withdrawal Status: Acute Assessment & Plan: Alcohol withdrawal protocol- IVF, MVI, thiamine, folate, magnesium and ativan per CIWA scoring 10/08 required 6 mg ativan overnight, CIWA scores 7-12, will transfer to floor and continue protocol 10/09- significant worsening later in day yesterday requiring extra doses of lorazepam and ultimately Precedex drip. Sedated this am, will try decreasing precdex drip to 0.5 mcg/kg 10/10- weaned off Precedex drip, transfer to floor and continue ativan withdrawal protocol. Has ATC placement Saturday after evaluation in the morning, anticipate taper will be done by then. 10/11- required significant doses of lorazepam and remains tremulous and tachycardic, discussed with social work and he will be able to have his screen done on Saturday even if not yet ready for d/c. 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 Recheck in am. 10/08 stable but low, continue to monitor 10/11- improving, now above 100, continue to monitor (7) At risk for deep venous thrombosis Status: Acute Assessment & Plan: No enoxaparin due to low platelets, SCDs, ambulation (8) At risk for stress ulcer Status: Acute Clinical Quality Measures DVT/VTE Risk/Contraindication: Risk Factor Score Per Nursin RFS Level Per Nursing on Admit: 1=Low/No VTE PPX YEVGENIY BROOKS MD Oct 12, 2017 08:43
[2017-10-12 12:00] VITALS: BP 129/86
[2017-10-12 15:49] VITALS: BP 136/80
[2017-10-12 20:14] VITALS: BP 126/85
[2017-10-13] VITALS (7 sets, daily range): BP systolic 116–152; BP diastolic 78–92
[2017-10-13 06:14] LABS: BASOPHILS % (AUTO) 1 % (0-10); EOSINOPHILS # (AUTO) 0.1 10^3/uL (0.0-0.3); EOSINOPHILS % (AUTO) 1 % (0-10); LYMPHOCYTES # (AUTO) 1.2 X 10^3 (1.0-4.0); LYMPHOCYTES % (AUTO) 29 % (12-44); MEAN CORPUSCULAR HEMOGLOBIN 35 PG (25-34); MEAN CORPUSCULAR HGB CONC 35 G/DL (32-36); MEAN CORPUSCULAR VOLUME 99 FL (80-99); MEAN PLATELET VOLUME 10.4 FL (7.4-10.4); MONOCYTES % (AUTO) 25 % (0-12); NEUTROPHILS # (AUTO) 1.8 X 10^3 (1.8-7.8); NEUTROPHILS % (AUTO) 44 % (42-75); PLATELET COUNT 187 10^3/uL (130-400); RED BLOOD COUNT 4.17 10^6/uL (4.35-5.85); RED CELL DISTRIBUTION WIDTH 12.8 % (10.0-14.5); WHITE BLOOD COUNT 4.1 10^3/uL (4.3-11.0)
[2017-10-13] MEDS: MULTIVIT W/MINERALS TAB (THERAGRAN M) PO SCH (06:17)
[2017-10-13] MEDS: PANTOPRAZOLE 40 MG (PROTONIX) TAB PO SCH (06:17)
[2017-10-13] MEDS: THIAMINE 100 MG (VITAMIN B-1) TAB PO SCH (06:17)
[2017-10-13 06:40] LABS: ALANINE AMINOTRANSFERASE 95 U/L (0-55); ALBUMIN 3.9 GM/DL (3.2-4.5); ANION GAP 12 MMOL/L (5-14); ASPARTATE AMINO TRANSFERASE 84 U/L (5-34); BILIRUBIN,TOTAL 0.2 MG/DL (0.1-1.0); BLOOD UREA NITROGEN 9 MG/DL (7-18); BUN/CREATININE RATIO 12; CALCIUM 9.6 MG/DL (8.5-10.1); CARBON DIOXIDE 23 MMOL/L (21-32); CHLORIDE 105 MMOL/L (98-107); CREATININE SERUM 0.78 MG/DL (0.60-1.30); GFR ESTIMATED > 60; GLUCOSE 100 MG/DL (70-105); SODIUM 140 MMOL/L (135-145); TOTAL PROTEIN 7.1 GM/DL (6.4-8.2)
[2017-10-13] MEDS: LEVETIRACETAM 500 MG (KEPPRA) TAB PO SCH ×2 (08:52→20:03)
[2017-10-13] MEDS: NICOTINE PATCH REMOVAL TP SCH (08:52)
[2017-10-13] MEDS: NICOTINE 21 MG (NICODERM) PATCH TD SCH (08:52)
--- NOTE | 2017-10-13 08:52 | Progress Note (SOAP) ---
Subjective Subjective/Events-last exam Patient voices no current complaints. He is awaiting his placement on Saturday for ATC. He reports he did not request any lorazepam yesterday. Review of Systems Date Seen by Provider: Oct 13, 2017 Time Seen by Provider: 07:40 Objective Exam Last Set of Vital Signs Vital Signs Date Time Temp Pulse Resp B/P (MAP) Pulse Ox O2 Delivery O2 Flow Rate FiO2 10/13/17 08:10 99.6 88 20 127/87 (100) 97 Room Air 10/09/17 16:00 3.50 Capillary Refill : Less Than 3 SecondsLess Than 3 Seconds I&O Intake and Output 10/13/17 00:00 Intake Total 1640 ml Output Total 790 ml Balance 850 ml Intake Oral 1640 ml Output Urine Total 790 ml # Voids 1 # Bowel Movements 1 General: No Acute Distress Neck: Supple Lungs: Clear to Auscultation Heart: Regular Rate Extremities: Other (Minimal to no shakiness of the hands) Neuro: Normal Speech Results/Procedures Lab Laboratory Tests 10/13/17 05:38: White Blood Count 4.1L, Red Blood Count 4.17L, Hemoglobin 14.4, Hematocrit 41, Mean Corpuscular Volume 99, Mean Corpuscular Hemoglobin 35H, Mean Corpuscular Hemoglobin Concent 35, Red Cell Distribution Width 12.8, Platelet Count 187, Mean Platelet Volume 10.4, Neutrophils (%) (Auto) 44, Lymphocytes (%) (Auto) 29 , Monocytes (%) (Auto) 25H, Eosinophils (%) (Auto) 1, Basophils (%) (Auto) 1, Neutrophils # (Auto) 1.8, Lymphocytes # (Auto) 1.2, Monocytes # (Auto) 1.0, Eosinophils # (Auto) 0.1, Basophils # (Auto) 0.0, Sodium Level 140, Potassium Level 4.0, Chloride Level 105, Carbon Dioxide Level 23, Anion Gap 12, Blood Urea Nitrogen 9, Creatinine 0.78, Estimat Glomerular Filtration Rate > 60, BUN/ Creatinine Ratio 12, Glucose Level 100, Calcium Level 9.6, Total Bilirubin 0.2, Aspartate Amino Transf (AST/SGOT) 84H, Alanine Aminotransferase (ALT/SGPT) 95H, Alkaline Phosphatase 149H, Total Protein 7.1, Albumin 3.9 Assessment/Plan Assessment/Plan Admission Dx (1) Alcohol withdrawal Status: Acute Assessment & Plan: Alcohol withdrawal protocol- IVF, MVI, thiamine, folate, magnesium and ativan per CIWA scoring 10/08 required 6 mg ativan overnight, CIWA scores 7-12, will transfer to floor and continue protocol 10/09- significant worsening later in day yesterday requiring extra doses of lorazepam and ultimately Precedex drip. Sedated this am, will try decreasing precdex drip to 0.5 mcg/kg 10/10- weaned off Precedex drip, transfer to floor and continue ativan withdrawal protocol. Has ATC placement Saturday after evaluation in the morning, anticipate taper will be done by then. 10/11- required significant doses of lorazepam and remains tremulous and tachycardic, discussed with social work and he will be able to have his screen done on Saturday even if not yet ready for d/c. 10/12 -Patient is improving but still will be receiving obviously Ativan based upon CIWA scoring -Plan is for ATC placement after Saturday 10/13 -Apparently patient did well yesterday without having lorazepam. 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 Recheck in am. 10/08 stable but low, continue to monitor 10/11- improving, now above 100, continue to monitor (7) At risk for deep venous thrombosis Status: Acute Assessment & Plan: No enoxaparin due to low platelets, SCDs, ambulation (8) At risk for stress ulcer Status: Acute Clinical Quality Measures DVT/VTE Risk/Contraindication: Risk Factor Score Per Nursin RFS Level Per Nursing on Admit: 1=Low/No VTE PPX YEVGENIY BROOKS MD Oct 13, 2017 08:52
[2017-10-13] MEDS: FOLIC ACID 1 MG TAB PO SCH (08:53)
[2017-10-14 03:31] VITALS: BP 135/92
[2017-10-14 05:28] LABS: BASOPHILS % (AUTO) 1 % (0-10); EOSINOPHILS % (AUTO) 0 % (0-10); LYMPHOCYTES # (AUTO) 1.1 X 10^3 (1.0-4.0); LYMPHOCYTES % (AUTO) 24 % (12-44); MEAN CORPUSCULAR HEMOGLOBIN 35 PG (25-34); MEAN CORPUSCULAR HGB CONC 34 G/DL (32-36); MEAN CORPUSCULAR VOLUME 100 FL (80-99); MONOCYTES # (AUTO) 1.4 X 10^3 (0.0-1.0); MONOCYTES % (AUTO) 29 % (0-12); NEUTROPHILS # (AUTO) 2.2 X 10^3 (1.8-7.8); NEUTROPHILS % (AUTO) 46 % (42-75); PLATELET COUNT 226 10^3/uL (130-400); RED BLOOD COUNT 4.17 10^6/uL (4.35-5.85); RED CELL DISTRIBUTION WIDTH 12.7 % (10.0-14.5); WHITE BLOOD COUNT 4.7 10^3/uL (4.3-11.0)
[2017-10-14] MEDS: THIAMINE 100 MG (VITAMIN B-1) TAB PO SCH (05:54)
[2017-10-14] MEDS: PANTOPRAZOLE 40 MG (PROTONIX) TAB PO SCH (05:54)
[2017-10-14] MEDS: MULTIVIT W/MINERALS TAB (THERAGRAN M) PO SCH (05:54)
[2017-10-14 05:55] LABS: ALANINE AMINOTRANSFERASE 107 U/L (0-55); ALBUMIN 4.1 GM/DL (3.2-4.5); ANION GAP 10 MMOL/L (5-14); ASPARTATE AMINO TRANSFERASE 87 U/L (5-34); BILIRUBIN,TOTAL 0.4 MG/DL (0.1-1.0); BLOOD UREA NITROGEN 10 MG/DL (7-18); BUN/CREATININE RATIO 12; CALCIUM 9.7 MG/DL (8.5-10.1); CARBON DIOXIDE 27 MMOL/L (21-32); CHLORIDE 104 MMOL/L (98-107); CREATININE SERUM 0.84 MG/DL (0.60-1.30); GFR ESTIMATED > 60; GLUCOSE 92 MG/DL (70-105); POTASSIUM 4.5 MMOL/L (3.6-5.0); SODIUM 141 MMOL/L (135-145); TOTAL PROTEIN 7.5 GM/DL (6.4-8.2)
[2017-10-14 08:00] VITALS: BP 154/66
[2017-10-14] MEDS: LEVETIRACETAM 500 MG (KEPPRA) TAB PO SCH (08:16)
[2017-10-14] MEDS: FOLIC ACID 1 MG TAB PO SCH (08:16)
[2017-10-14] MEDS: NICOTINE PATCH REMOVAL TP SCH (08:16)
[2017-10-14] MEDS: NICOTINE 21 MG (NICODERM) PATCH TD SCH (08:16)
--- NOTE | 2017-10-14 09:44 | Discharge Summary-Hospitalist ---
Diagnosis/Chief Complaint Date of Admission Oct 07, 2017 at 13:48 Date of Discharge Discharge Date: Oct 14, 2017 Admission Diagnosis Hospital course: Patient had an uneventful hospital course. Pt was admitted for ETOH withdrawal and was placed on ETOH withdrawal protocol. He stabilized and elevated LFT's improved with hepatitis panel negative. Pt was eating and drinking well with + BM so he was agreeable for DC to [facility] for admit for ETOH rehab. Discharge Diagnosis (1) Alcohol withdrawal Status: Acute Assessment & Plan: Alcohol withdrawal protocol- IVF, MVI, thiamine, folate, magnesium and ativan per CIWA scoring 10/08 required 6 mg ativan overnight, CIWA scores 7-12, will transfer to floor and continue protocol 10/09- significant worsening later in day yesterday requiring extra doses of lorazepam and ultimately Precedex drip. Sedated this am, will try decreasing precdex drip to 0.5 mcg/kg 10/10- weaned off Precedex drip, transfer to floor and continue ativan withdrawal protocol. Has [facility] placement Saturday after evaluation in the morning, anticipate taper will be done by then. 10/11- required significant doses of lorazepam and remains tremulous and tachycardic, discussed with social work and he will be able to have his screen done on Saturday even if not yet ready for d/c. (2) Seizure disorder Status: Chronic Assessment & Plan: Resume home Keppra (3) Hypokalemia Status: Resolved (4) Elevated LFTs Status: Acute Assessment & Plan: Likely due to alcohol, check hepatitis panel Hepatitis panel negative, monitor (5) Hypomagnesemia Status: Resolved (6) Thrombocytopenia Status: Acute Assessment & Plan: Suspect due to liver disease, INR/PT and PTT low at OSH. Recheck in am. 10/08 stable but low, continue to monitor 10/11- improving, now above 100, continue to monitor (7) At risk for deep venous thrombosis Status: Acute Assessment & Plan: No enoxaparin due to low platelets, SCDs, ambulation (8) At risk for stress ulcer Status: Acute Discharge Summary Discharge Physical Examination Allergies: Coded Allergies: Penicillins (Unverified Allergy, Mild, 12/21/09) Vitals & I&Os Vital Signs Date Time Temp Pulse Resp B/P (MAP) Pulse Ox O2 Delivery O2 Flow Rate FiO2 10/14/17 08:00 98.7 78 20 154/66 (95) 98 Room Air 10/09/17 16:00 3.50 Hospital Course Labs (last 24 hrs) Laboratory Tests 10/14/17 05:15: White Blood Count 4.7, Red Blood Count 4.17L, Hemoglobin 14.4, Hematocrit 42, Mean Corpuscular Volume 100H, Mean Corpuscular Hemoglobin 35H, Mean Corpuscular Hemoglobin Concent 34, Red Cell Distribution Width 12.7, Platelet Count 226, Mean Platelet Volume 10.0, Neutrophils (%) (Auto) 46, Lymphocytes (%) (Auto) 24 , Monocytes (%) (Auto) 29H, Eosinophils (%) (Auto) 0, Basophils (%) (Auto) 1, Neutrophils # (Auto) 2.2, Lymphocytes # (Auto) 1.1, Monocytes # (Auto) 1.4H, Eosinophils # (Auto) 0.0, Basophils # (Auto) 0.0, Sodium Level 141, Potassium Level 4.5, Chloride Level 104, Carbon Dioxide Level 27, Anion Gap 10, Blood Urea Nitrogen 10, Creatinine 0.84, Estimat Glomerular Filtration Rate > 60, BUN/ Creatinine Ratio 12, Glucose Level 92, Calcium Level 9.7, Total Bilirubin 0.4, Aspartate Amino Transf (AST/SGOT) 87H, Alanine Aminotransferase (ALT/SGPT) 107H , Alkaline Phosphatase 97, Total Protein 7.5, Albumin 4.1 Pending Labs Laboratory Tests 10/14/17 05:15: White Blood Count 4.7, Red Blood Count 4.17, Hemoglobin 14.4, Hematocrit 42, Mean Corpuscular Volume 100, Mean Corpuscular Hemoglobin 35, Mean Corpuscular Hemoglobin Concent 34, Red Cell Distribution Width 12.7, Platelet Count 226, Mean Platelet Volume 10.0, Neutrophils (%) (Auto) 46, Lymphocytes (%) (Auto) 24 , Monocytes (%) (Auto) 29, Eosinophils (%) (Auto) 0, Basophils (%) (Auto) 1, Neutrophils # (Auto) 2.2, Lymphocytes # (Auto) 1.1, Monocytes # (Auto) 1.4, Eosinophils # (Auto) 0.0, Basophils # (Auto) 0.0, Sodium Level 141, Potassium Level 4.5, Chloride Level 104, Carbon Dioxide Level 27, Anion Gap 10, Blood Urea Nitrogen 10, Creatinine 0.84, Estimat Glomerular Filtration Rate > 60, BUN/ Creatinine Ratio 12, Glucose Level 92, Calcium Level 9.7, Total Bilirubin 0.4, Aspartate Amino Transf (AST/SGOT) 87, Alanine Aminotransferase (ALT/SGPT) 107, Alkaline Phosphatase 97, Total Protein 7.5, Albumin 4.1 Discharge Home Medications: Active Scripts Active Reported Levetiracetam 500 Mg Tablet 500 Mg PO BID Instructions to patient/family Please see electronic discharge instructions given to patient. Clinical Quality Measures DVT/VTE Risk/Contraindication: Risk Factor Score Per Nursin RFS Level Per Nursing on Admit: 1=Low/No VTE PPX Problem Qualifiers (1) Alcohol withdrawal: Complication of substance-induced condition: with perceptual disturbance Qualified Codes: F10.232 - Alcohol dependence with withdrawal with perceptual disturbance CORNELIA CAPELLAN DO Oct 14, 2017 09:44
== END 2017-10-14 10:30 | disposition home or self-care (01) | DRG 897 ==
LOC: ICU 13:48 → 4TH 10-10 10:40
PROVIDERS: ADMIT Family Medicine; ATTEND Family Medicine
DX: F10.232 Alcohol dependence with withdrawal with perceptual disturbance (principal); G40.909 Epilepsy, unspecified, not intractable, without status epilepticus; E87.6 Hypokalemia; E83.42 Hypomagnesemia; D69.6 Thrombocytopenia, unspecified; R79.89 Other specified abnormal findings of blood chemistry; F41.9 Anxiety disorder, unspecified; F17.210 Nicotine dependence, cigarettes, uncomplicated
CPT/HCPCS: 36415; 80048; 80053; 80074; 80076; 83735; 84100; 85025; 86703; 93005